=== PATIENT | female | born 1935 | race Caucasian/White ===

== ENCOUNTER 2017-07-15 17:10 | Observation (INO) | payer MEDICARE, BC ==
[2017-07-15] MEDS ORDERED: INFLUENZA VIRUS VACCINE 0.5 ML (DISPENSING) IM* (19:30)
[2017-07-15] MEDS ORDERED: ZOLPIDEM 5 MG TAB PO (21:30)
[2017-07-15] MEDS ORDERED: MAGNESIUM HYDROXIDE 30ML CUP PO (21:30)
[2017-07-15] MEDS ORDERED: NACL 0.9% 3 ML SYG IV ×3 (21:30)
[2017-07-15] MEDS ORDERED: OXYMORPHONE HCL 10 MG PO (22:00)
[2017-07-15] MEDS: INSULIN DETEMIR [LEVEMIR] 3ML CART SC (22:04)
[2017-07-15 22:23] LABS: INR 0.98; PARTIAL THROMBOPLASTIN TIME 30.5 Sec (25.0-35.0); PROTIME 13.1 Sec (11.9-14.9)
[2017-07-15] MEDS: [UNRECOGNIZED DRUG - REMARK] XX (22:30)
[2017-07-15] MEDS ORDERED: GLUCOSE GEL 15 GRAM TUBE PO ×2 (22:30)
[2017-07-15] MEDS ORDERED: GLUCOSE GEL 15 GRAM TUBE BUCCAL (22:30)
[2017-07-15] MEDS ORDERED: DEXTROSE 50% 50 ML SYRINGE IV ×2 (22:30)
[2017-07-15] MEDS ORDERED: GLUCAGON 1 MG INJ IM (22:30)
[2017-07-15 22:38] LABS: ADD UMIC YES; UR ASCORBIC ACID 20 mg/dL (NEGATIVE); UR BACTERIA MODERATE /HPF (NONE SEEN); UR BILIRUBIN (Dip) NEGATIVE (NEGATIVE); UR BLOOD (Dip) NEGATIVE (NEGATIVE); UR CLARITY SLIGHTLY CLOUDY (CLEAR); UR COLOR YELLOW (YELLOW); UR GLUCOSE (Dip) 1+ mg/dL (NEGATIVE); UR KETONES (Dip) NEGATIVE (NEGATIVE); UR LEUKOCYTE ESTERASE (Dip) 3+ Leu/ul (NEGATIVE); UR NITRITE (Dip) POSITIVE (NEGATIVE); UR RBC 4 /HPF (0-5); UR TOTAL PROTEIN (Dip) NEGATIVE (NEGATIVE); UR UROBILINOGEN (Dip) NEGATIVE (NEGATIVE); UR WBC 106 /HPF (0-5)
[2017-07-16] MEDS: SOD CHLORIDE 0.45% 1,000 ML IV ×3 (00:23→17:15)
[2017-07-16] MEDS: HYDROmorphONE 2 MG TAB PO (06:28)
[2017-07-16] MEDS: [UNRECOGNIZED DRUG - REMARK] XX (06:30)
[2017-07-16 06:34] LABS: ADD MAN DIFF? NO
[2017-07-16 06:42] LABS: WHITE BLOOD COUNT 4.5 10^3/ul (4.8-10.8)
[2017-07-16 06:42] LABS: BASOPHILS % 0.4 % (0.0-2.0); EOSINOPHILS # 0.2 10^3/ul (0.0-0.5); HEMATOCRIT 31.1 % (37.0-47.0); HEMOGLOBIN 10.2 g/dl (12.0-16.0); LYMPHOCYTES # 1.4 10^3/ul (0.8-2.9); LYMPHOCYTES % 31.9 % (15.0-51.0); MEAN CORPUSCULAR HEMOGLOBIN 29.8 pg (29.0-33.0); MEAN CORPUSCULAR HGB CONC 32.8 g/dl (32.0-37.0); MEAN CORPUSCULAR VOLUME 90.9 fl (82.0-101.0); MEAN PLATELET VOLUME 11.8 fl (7.4-10.4); MONOCYTE # 0.3 10^3/ul (0.3-0.9); NEUTROPHIL # 2.6 10^3/ul (1.6-7.5); NEUTROPHILS % 57.5 % (39.0-77.0); PLATELET COUNT 100 10^3/UL (140-415); RED BLOOD COUNT 3.42 10^6/ul (4.20-5.40); RED CELL DISTRIBUTION WIDTH 17.2 % (11.5-14.5)
[2017-07-16] MEDS: GABAPENTIN 400 MG CAP PO ×3 (06:49→17:00)
[2017-07-16 07:16] LABS: HEMOGLOBIN A1C 6.9 % (0-5.9)
[2017-07-16] MEDS ORDERED: INSULIN LISPRO 100 UNIT/ML VIAL SC (07:30)
[2017-07-16 07:39] LABS: SODIUM 140 mmol/L (135-144)
[2017-07-16 07:40] LABS: ALANINE AMINOTRANSFERASE 40 IU/L (13-69); ALKALINE PHOSPHATASE 197 IU/L (42-121); ANION GAP 13 (8-16); ASPARTATE AMINO TRANSFERASE 65 IU/L (15-46); BLOOD UREA NITROGEN 12 mg/dl (7-20); CARBON DIOXIDE 24 mmol/L (21-31); CHLORIDE 107 mmol/L (97-110); CREATININE 0.65 mg/dl (0.44-1.00); GLUCOSE 103 mg/dl (70-220); MAGNESIUM 2.9 mg/dl (1.7-2.5); POTASSIUM 4.1 mmol/L (3.5-5.1)
[2017-07-16 07:41] LABS: ALBUMIN 3.3 g/dl (3.3-4.9); ALBUMIN/GLOBULIN RATIO 0.91; BILIRUBIN,INDIRECT 0.5 mg/dl (0-1.1); BILIRUBIN,TOTAL 0.5 mg/dl (0.2-1.3); TOTAL PROTEIN 6.9 g/dl (6.1-8.1)
[2017-07-16] MEDS: INSULIN ASPART [NOVOLOG] 3 ML PEN SC ×4 (08:00→17:35)
[2017-07-16 08:10] LABS: CHOL/HDL RATIO 2.3 RATIO; CHOLESTEROL 137 mg/dl (100-200); HDL CHOLESTEROL 59 mg/dl (33-92); LDL CHOLESTEROL,CALCULATED 56 mg/dl; TRIGLYCERIDES 112 mg/dl (0-149)
[2017-07-16] MEDS: FOLIC ACID 1 MG TAB PO (08:41)
[2017-07-16] MEDS: ASPIRIN (EC) 81 MG TAB PO (08:41)
[2017-07-16] MEDS: CHOLECALCIFEROL 1,000 UNIT TAB PO (08:42)
[2017-07-16] MEDS: ENALAPRIL 20 MG TAB PO (08:42)
[2017-07-16] MEDS: AMLODIPINE 5 MG TAB PO (08:43)
[2017-07-16] MEDS: INSULIN DETEMIR [LEVEMIR] 3ML CART SC (08:44)
[2017-07-16] MEDS: DORZOLAMIDE/TIMOLOL 10 ML OPH RIGHT EYE (08:45)
[2017-07-16] MEDS: DORZOLAMIDE 2% 10 ML OPH RIGHT EYE (08:45)
[2017-07-16] MEDS: BRIMONIDINE 0.1% 5 ML OPH RIGHT EYE (08:45)
[2017-07-16] MEDS: FAMOTIDINE 20 MG INJ IV (08:45)
[2017-07-16] MEDS: NIACIN 500 MG TAB PO (08:50)
[2017-07-16] MEDS ORDERED: GABAPENTIN 400 MG CAP PO ×2 (09:00)
[2017-07-16] MEDS: CYANOCOBALAMIN 500 MCG TAB PO (15:02)
[2017-07-16] MEDS: LIDOCAINE 1% (MDV) 20 ML INJ SC (15:07)
[2017-07-16] MEDS ORDERED: LATANOPROST 0.005% 2.5 ML OPH RIGHT EYE (21:00)
[2017-07-16] MEDS ORDERED: GENTAMICIN 0.1% 15 GM OINT TOP ×2 (21:00)
[2017-07-17] MEDS ORDERED: SODIUM HYPOCHLORITE 1/40% 1L IRRIG IRR (09:00)
== END 2017-07-16 17:45 | disposition home or self-care (01) ==
LOC: PP2 17:10
PROVIDERS: Internal Medicine
DX: E11.621 Type 2 diabetes mellitus with foot ulcer (principal); E11.42 Type 2 diabetes mellitus with diabetic polyneuropathy; E11.65 Type 2 diabetes mellitus with hyperglycemia; E78.5 Hyperlipidemia, unspecified; I10 Essential (primary) hypertension; N39.0 Urinary tract infection, site not specified; Z79.4 Long term (current) use of insulin
CPT/HCPCS: 11042; 73590; 80053; 80061; 81001; 82962; 83036; 83735; 84100; 85025; 85610; 85730; 87081; 90686; 93970; G0378

== ENCOUNTER 2018-03-12 13:15 | Emergency (ER) | payer MEDICARE, BC | END 2018-03-12 17:28 | disposition home or self-care (01) | LOC: FTE 13:15 | DX: L89.619 Pressure ulcer of right heel, unspecified stage (principal); E11.9 Type 2 diabetes mellitus without complications; Z79.4 Long term (current) use of insulin; Z79.82 Long term (current) use of aspirin | CPT/HCPCS: 99282 ==